=== PATIENT | female | born 1985 | race Two or more races ===

== ENCOUNTER 2025-06-07 22:45 | Emergency (ER) | payer OTHER ==
[~2025-06-07] VITALS: Ht 157.5 cm; Wt 68.0 kg
[2025-06-07 23:09] VITALS: BP 139/82; O2SAT 95
[2025-06-08] MEDS ORDERED: KETOROLAC TROMETHAMINE 30 MG VIAL IV STA (00:05)
[2025-06-08] MEDS ORDERED: KETOROLAC TROMETHAMINE 30 MG VIAL ONE (00:06)
[2025-06-08] MEDS ORDERED: 0.9 % SODIUM CHLORIDE 1,000 ML IV ONE (00:15)
[2025-06-08 01:15] LABS: URINE APPEARANCE Cloudy; URINE BILIRRUBIN Negative (NEGATIVE); URINE BLOOD Large; URINE COLOR Yellow; URINE GLUCOSE Negative (NEGATIVE); URINE KETONE Trace (NEGATIVE); URINE LEUKOCYTE Negative; URINE NITRATE Negative; URINE PROTEIN Trace (NEGATIVE); URINE UROBILINOGEN 1.0 E.U./dl
[2025-06-08 01:18] LABS: URINE BACTERIA 64.7 uL (0.0-1933); URINE EPITHELIAL CELLS 4.4 uL (0.0-38.8); URINE WBC 4.9 uL (0.0-23.2)
[2025-06-08 01:20] LABS: URINE CAST 0.00 uL (0.0-1.40)
[2025-06-08 01:41] LABS: BASO % 0.1 % (0.1-1.2); EOS # 0.05 (0.04-0.54); EOS % 0.7 % (0.7-7.0); LYMPH # 2.35 (1.18-3.74); LYMPH % 32.9 % (19.3-53.1); MEAN PLATELET VOLUME 8.80 fl (9.4-12.4); MONO # 0.55 (0.24-0.82); MONO % 7.7 % (4.7-12.5); NEUT # 4.16 (1.56-6.13); NEUT % 58.3 % (34.0-71.1); RED CELL DISTRIBUTION WIDTH 14.7 % (11.6-14.4)
[2025-06-08 02:22] LABS: INR 0.98
[2025-06-08 02:31] LABS: ALT/SGPT 17 U/L (12-78); AST/SGOT 10 U/L (15-37); BILIRUBIN TOTAL 0.25 mg/dL (0.3-1.2); BILIRUBIN,CONJUGATED < 0.10 mg/dL (0.0-0.2); BUN CREA RATIO 18 (7.0-25.0); CREATININE SERUM 0.91 mg/dL (0.55-1.02); GFR 69.18; GLOBULINA 3.8 G/DL (2.4-3.5); GLUCOSE FASTING 100 mg/dL (65-100); HCG QUANTITATIVE < 1 mUI/mL (1-3); OSMOLALITY SERUM 286 MOSM/KG (275-295)
[2025-06-08] MEDS ORDERED: POLY119PG PO (04:42)
== END 2025-06-08 04:58 ==
LOC: ER 22:46
PROVIDERS: General Practice
DX: K59.00 Constipation, unspecified (principal); R10.12 Left upper quadrant pain; R10.9 Unspecified abdominal pain
CPT/HCPCS: 36415; 74177; Q9965